=== PATIENT | male | born 1970 ===

== ENCOUNTER 2016-10-24 15:17 | Inpatient (IN) | payer OTHER ==
--- NOTE | 2016-10-24 15:39 | ED PDOC ---
HPI: General Adult Time Seen by Provider: 10/24/16 15:39 Chief Complaint (Nursing): Back Pain Chief Complaint (Provider): back pain, vomiting History Per: Patient Additional Complaint(s): 46-year-old male presents to emergency department with left-sided lower back pain and vomiting that started yesterday. Patient has history of chronic back pain but states that vomiting started yesterday and back pain became worse. Patient states he has had similar symptoms in the past and that this happens about once per year. He denies any fever or chills. No associated abdominal pain. Patient has been taking Motrin but this has not helped the pain. Patient had similar symptoms last year at this time and was diagnosed with influenza and URI. Past Medical History Reviewed: Historical Data, Nursing Documentation, Vital Signs Vital Signs: Last Vital Signs Temp 99 F 10/25/16 08:00 Pulse 85 10/25/16 08:00 Resp 20 10/25/16 08:00 BP 103/55 L 10/25/16 08:00 Pulse Ox 97 10/25/16 08:00 - Medical History PMH: Anemia - Surgical History Surgical History: Appendectomy - Family History Family History: States: No Known Family Hx - Living Arrangements Living Arrangements: With Family - Social History Current smoker - smoking cessation education provided: Yes Alcohol: Social Drugs: Denies - Home Medications Home Medications: Ambulatory Orders Medication Instructions Recorded No Known Home Med 10/24/16 - Allergies Allergies/Adverse Reactions: Allergies Allergy/AdvReac Type Severity Reaction Status Date / Time No Known Allergies Allergy Verified 10/24/16 15:28 Review of Systems ROS Statement: Except As Marked, All Systems Reviewed And Found Negative Constitutional: Negative for: Fever, Chills Cardiovascular: Negative for: Chest Pain Respiratory: Negative for: Cough Gastrointestinal: Positive for: Nausea, Vomiting. Negative for: Abdominal Pain , Diarrhea Genitourinary Male: Negative for: Dysuria, Frequency, Incontinence, Hematuria Musculoskeletal: Positive for: Back Pain Neurological: Negative for: Headache, Dizziness Physical Exam - Reviewed Nursing Documentation Reviewed: Yes Vital Signs Reviewed: Yes - Physical Exam Appears: Positive for: Well, Non-toxic, No Acute Distress Skin: Negative for: Rash Cardiovascular/Chest: Positive for: Regular Rate, Rhythm, Other Respiratory: Positive for: Normal Breath Sounds Gastrointestinal/Abdominal: Positive for: Normal Exam, Soft. Negative for: Tenderness, Distended, Guarding, Rebound Back: Positive for: L CVA Tenderness (mild on left), Vertebral Tenderness ( tenderness left paraspinal region with no swelling or ecchymosis), Other ( negative bilateral straight leg raise). Negative for: R CVA Tenderness, Muscle Spasm Extremity: Positive for: Normal ROM. Negative for: Pedal Edema Neurologic/Psych: Positive for: Alert, Oriented - Laboratory Results Result Diagrams: 10/24/16 16:15 10/24/16 16:15 - ECG Interpretation Of ECG: NSR 84 bpm, no acute finding, reviewed by PA and ED attending O2 Sat by Pulse Oximetry: 100 Pulse Ox Interpretation: Normal - Other Rad CT abd and pelvis without contrast X-Ray: Read By Radiologist X-Ray Interpretation: see below CT chest X-Ray: Interpreted by Me, Viewed By Me X-Ray Interpretation: suspect JEROME pneumonia Abd US X-Ray: Read By Radiologist X-Ray Interpretation: gallstones with no acute cholecystitis Medical Decision Making Medical Decision Makin46 year old with low back pain and vomiting Plan: CBC CMP Lipase CT abd and pelvis without contrast IVF IV zofran and morphine Urine dip CT: IMPRESSION: Gallstones. Infiltration and gas in the left buttock and subcutaneous fat, correlate for recent trauma. Patient's buttocks were examined thoroughly based on above CT finding, no open wounds, evidence of trauma or postoperative changes noted. Chest x-ray demonstrates likely left upper lobe pneumonia. Leukocytosis noted. IV Rocephin and Zithromax ordered. Case was discussed with family practice resident, Dr. Bloom, he will admit [facility]. Patient is aware of and agrees with admission. Disposition - Clinical Impression Clinical Impression: Leukocytosis, Pneumonia - Patient ED Disposition Is Patient to be Admitted: Yes - Disposition Disposition Time: 19:33 Condition: FAIR - Pt Status Changed To: Hospital Disposition Of: Observation Results - Lab Results Lab Results: 10/24/16 10/24/16 10/24/16 17:35 16:15 10:01 WBC 17.3 H RBC 4.29 L Hgb 8.5 L Hct 29.7 L MCV 69.3 L MCH 19.8 L MCHC 28.6 L RDW 22.0 H Plt Count 265 MPV 10.1 Neut % (Auto) 89.5 H Lymph % (Auto) 6.0 L [place] % (Auto) 4.5 Eos % (Auto) 0.0 Baso % (Auto) 0.0 Neut # 15.4 H Lymph # 1.0 Roosevelt # 0.8 Eos # 0.0 Baso # 0.0 Neutrophils % (Manual) 81 H Band Neutrophils % 4 H Lymphocytes % (Manual) 8 L Monocytes % (Manual) 7 Platelet Estimate Normal Hypochromasia (manual) Moderate Poikilocytosis (manual Slight Anisocytosis (manual) Moderate Microcytosis (manual) Moderate Target Cells Moderate Tear Drop Cells Slight Ovalocytes Slight pO2 25 L VBG pH 7.33 VBG pCO2 49 VBG HCO3 22.8 VBG Total CO2 27.3 VBG O2 Sat (Calc) 59.3 VBG Base Excess -0.7 L VBG Potassium 4.2 Glucose 115 H Lactate 1.7 FiO2 21.0 Sodium 143 138.0 Potassium 4.0 Chloride 106 109.0 H Carbon Dioxide 23 Anion Gap 18 BUN 16 Creatinine 0.6 L Est GFR ( Amer) > 60 Est GFR (Non-Af Amer) > 60 Random Glucose 111 H Calcium 9.2 Total Bilirubin 2.2 H AST 34 ALT 11 L Alkaline Phosphatase 79 Total Protein 8.4 H Albumin 4.3 Globulin 4.2 H Albumin/Globulin Ratio 1.0 Lipase 42 Venous Blood Potassium 4.2 Urine Color Yellow Urine Clarity Clear Urine pH 5.0 Ur Specific [place] 1.025 Urine Protein 30 Urine Glucose (UA) Neg Urine Ketones Negative Urine Blood Small Urine Nitrate Negative Urine Bilirubin Negative Urine Urobilinogen 0.2-1.0 Ur Leukocyte Esterase Neg Urine RBC (Auto) < 1 Urine Microscopic WBC 1
[2016-10-24] MEDS ORDERED: Sodium Chloride 0.9% 1,000 ML IV STA (15:49)
[2016-10-24 16:24] LABS: HEMATOCRIT 29.7 % (35.0-51.0); MEAN CELL VOLUME 69.3 fl (80.0-94.0); MEAN CORPUSCULAR HEMOGLOBIN 19.8 pg (27.0-31.0); MEAN CORPUSCULAR HGB CONC 28.6 g/dL (33.0-37.0); MEAN PLATELET VOLUME 10.1 fl (7.2-11.7); MONO # 0.8 K/uL (0.0-0.8); MONO % 4.5 % (0.0-10.0); NEUT # 15.4 K/uL (1.8-7.0); NEUT % 89.5 % (50.0-75.0); PLATELET COUNT 265 K/uL (130-400); WHITE BLOOD COUNT 17.3 K/uL (4.8-10.8)
[2016-10-24 16:49] LABS: ALKALINE PHOSPHATASE 79 U/L (38-126); ALT/SGPT 11 U/L (21-72); AST/SGOT 34 U/L (17-59); BILIRUBIN,TOTAL 2.2 mg/dl (0.2-1.3); BLOOD UREA NITROGEN 16 mg/dl (9-20); CALCIUM 9.2 mg/dL (8.4-10.2); CARBON DIOXIDE 23 mmol/L (22-30); CHLORIDE 106 mmol/L (98-107); GFR AFRICAN-AMERICAN > 60; GLUCOSE,RANDOM 111 mg/dL (75-110); LIPASE 42 U/L (23-300); SODIUM 143 mmol/l (132-148); TOTAL PROTEIN 8.4 G/DL (6.3-8.2)
--- NOTE | 2016-10-24 17:30 | CT ---
PROCEDURE: CT Abdomen and Pelvis without intravenous contrast HISTORY: right flank pain, hematuria COMPARISON: None. TECHNIQUE: Technique. Contrast Dose: Radiation dose: Total exam DLP = 427 mGy-cm. This CT exam was performed using one or more of the following dose reduction techniques: Automated exposure control, adjustment of the mA and/or kV according to patient size, and/or use of iterative reconstruction technique. FINDINGS: LOWER THORAX: Unremarkable. LIVER: Unremarkable. No gross lesion or ductal dilatation. GALLBLADDER AND BILE DUCTS: Gallstones. PANCREAS: Unremarkable. No gross lesion or ductal dilatation. SPLEEN: Unremarkable. ADRENALS: Unremarkable. No mass. KIDNEYS AND URETERS: Unremarkable. No hydronephrosis. No solid mass. VASCULATURE: Unremarkable. No aortic aneurysm. BOWEL: Unremarkable. No obstruction. No gross mural thickening. APPENDIX: Unremarkable. Normal appendix. PERITONEUM: Unremarkable. No free fluid. No free air. LYMPH NODES: Unremarkable. No enlarged lymph nodes. BLADDER: Unremarkable. REPRODUCTIVE: Unremarkable. BONES: No acute fracture. OTHER FINDINGS: There is infiltration and gas in the left buttock and subcutaneous fat.. IMPRESSION: Gallstones. Infiltration and gas in the left buttock and subcutaneous fat, correlate for recent trauma..
[2016-10-24 17:54] LABS: RBC URINE < 1 /hpf (0-3); URINE BILIRUBIN NEGATIVE (NEGATIVE); URINE BLOOD SMALL (NEGATIVE); URINE COLOR YELLOW (YELLOW); URINE GLUCOSE (UA) NEG (Normal); URINE KETONE NEGATIVE (NEGATIVE); URINE LEUKOCYTE ESTERASE NEG Leu/uL (Negative); URINE PROTEIN 30 mg/dL (NEGATIVE); URINE UROBILINOGEN 0.2-1.0 mg/dL (0.2-1.0); WBC URINE 1 /hpf (0-5)
[2016-10-24 18:08] LABS: VENOUS BLOOD GAS BASE EXCESS -0.7 mmol/L (0.0-2.0); VENOUS BLOOD GAS PCO2 49 mmHg (40-60); VENOUS BLOOD PH 7.33 (7.32-7.43)
[2016-10-24] MEDS ORDERED: Azithromycin 500 MG in Sodium Chloride 0.9% 250 ML IVPB STA (19:20)
[2016-10-24] MEDS ORDERED: PED IVPB STA (19:20)
[2016-10-24] MEDS ORDERED: CEFTRIAXONE IVPB STA (19:20)
[2016-10-24] MEDS ORDERED: cefTRIAXone (Rocephin) 1 gm Inj ONE (19:49)
--- NOTE | 2016-10-24 20:04 | CP.PCM.HP ---
History of Present Illness - History of Present Illness History of Present Illness: 46 yo M w PMHx of chronic anemia w alpha thalassemia is admitted for nausea, vomiting, productive cough, and cough-associated mid back pain for previous 2-3 days. Pt confirms that his back pain does develop following the periods of coughing. He also states subjective fevers at home and added that he had a similar presentation in September. When asked about the patient's coughing habits, both mother and partner at bedside stated he coughs 3-4 months of the year with intermittent sputum production. Pt denies any previous pulmonary diagnosis or workup. He states that he has smoked cigarettes regularly since the age of [age], 20+ yrs at a rate of 1PPD, but insists that he's been cutting back lately. Otherwise, he denies diarrhea/constipation, chest pain, abd pain, hematuria, dysuria, or myalgias. PMD: [facility] eCW reviewed PMHx: Alpha Thalassemia (eCW note 10/07/15 and [facility] Result 09/30/14 ) PSHx: Appendectomy 10+ yrs ago NKDA Home Meds: None FHx: None SHx: Smoking since age 9 w 20+ yrs @ 1PPD, social etoh not weekly, denies illicit drugs; this history is confirmed by the family members present ED Course: -CBC -CMP -Lipase -VBG -BCx -UCx -UA -CXR -EKG -CT A/P -U/S Abd -Morphine 2mg IVP STAT x1 -NS 1L -Ceftriaxone 1gm IVP x1 -Azithromycin 500mg IVP x1 -Zofran 4mg IVP STAT x2 Present on Admission - Present on Admission Any Indicators Present on Admission: No History of DVT/PE: No History of Uncontrolled Diabetes: No Urinary Catheter: No Decubitus Ulcer Present: No Review of Systems - Review of Systems Review of Systems: see HPI Past Patient History - Past Social History Alcohol: Social Drugs: Denies - CARDIAC Hx Cardiac Disorders: No - PULMONARY Hx Respiratory Disorders: No - ENDOCRINE/METABOLIC Hx Endocrine Disorders: No - HEMATOLOGICAL/ONCOLOGICAL Hx Anemia: Yes - PSYCHIATRIC Hx Substance Use: No - SURGICAL HISTORY Hx Appendectomy: Yes - ANESTHESIA Hx Anesthesia: Yes Hx Anesthesia Reactions: No Meds Allergies/Adverse Reactions: Allergies Allergy/AdvReac Type Severity Reaction Status Date / Time No Known Allergies Allergy Verified 10/24/16 15:28 Physical Exam - Constitutional Appears: No Acute Distress, Older Than Stated Age - Head Exam Head Exam: ATRAUMATIC, NORMAL INSPECTION - Eye Exam Eye Exam: EOMI Pupil Exam: PERRL - ENT Exam ENT Exam: Mucous Membranes Dry - Neck Exam Neck exam: Positive for: Full Rom. Negative for: Tenderness - Respiratory Exam Respiratory Exam: Rhonchi (mildly throughout), Wheezes (minimal lower lobes), NORMAL BREATHING PATTERN. absent: Respiratory Distress - Cardiovascular Exam Cardiovascular Exam: REGULAR RHYTHM - GI/Abdominal Exam GI & Abdominal Exam: Normal Bowel Sounds, Soft. absent: Tenderness - Back Exam Back exam: NORMAL INSPECTION, tenderness - Neurological Exam Neurological exam: Alert, CN II-XII Intact, Oriented x3 - Psychiatric Exam Psychiatric exam: Normal Affect, Normal Mood - Skin Additional comments: Dry, Intact, Warm, but mild jaundice; buttocks showed no wounds, ecchymosis, drainage, or abnormal pathology Results - Vital Signs Recent Vital Signs: Last Vital Signs Temp 99.3 F 10/24/16 15:28 Pulse 97 H 10/24/16 15:28 Resp 18 10/24/16 15:28 BP 104/58 L 10/24/16 15:28 Pulse Ox 100 10/24/16 19:37 - Labs Result Diagrams: 10/24/16 16:15 10/24/16 16:15 Assessment & Plan - Assessment and Plan (Free Text) Plan: 46 yo M w PMHx of chronic anemia from alpha thalassemia is admitted for nausea, vomiting, productive cough, and cough-associated mid back pain for previous 2-3 days 1) Productive cough w cough-associated back pain -Chronic Bronchitis VS Pneumonia VS other etiology -Afebrile, NSR 90s, Resp Rate wnl -CXR shows well-inflated lungs w/o clear infiltrate, d/w overnight hospitalist -CURB 65 score of 0 -Duoneb 3ml INH STAT -Duoneb 3ml INH RQID -Albuterol 0.083% INH RQ6 PRN -Robitussin DM 10 mL PO Q6H PRN -Tylenol 650mg PO Q6H PRN mild pain -Toradol 30mg IVP ONCE PRN moderate pain; loading dose --Ibuprofen d/c'ed, never given -Toradol 15mg IVP Q6H PRN moderate pain --Conveyed the following to RNs: one time dose of 30 with follow up 15s -Morphine 2mg IVP Q6H PRN severe pain -Ceftriaxone 2g IVP Daily -Azithromycin 500mg IVP Daily -f/u Respiratory Exam following Duoneb -f/u Respiratory Status -f/u Procalcitonin, HIV -Will consider removing antibiotics if Pneumonia ruled out -Will consider CT Chest for further pulmonary workup 2) r/o Bile Duct Stone -Few day h/o nausea/vomiting, skin slightly jaundiced, noted h/o alpha thalassemia -CT A/P: Gallstones. Hepatomegaly. Infiltration and gas in the left buttock and subcutaneous fat, correlate for recent trauma. -U/S Abd: Gallstones. No sonographic evidence of acute cholecystitis. Hepatomegaly, measuring 20cm in length. Otherwise within normal limits in appearance. Normal flow seen in the main portal vein on color and Doppler imaging. -NPO for potential morning procedure -GI aware and onboard -D5 1/2NS @ 126ml/hr for hydration + NPO -Protonix 40mg IVP STAT, before NSAIDs given -Protonix 40mg IVP Daily, during at least NPO period -Zofran 4mg IVP Q6H PRN -f/u MRCP, as per GI -f/u GI recommendations -f/u NPO status, pertaining to the need to remain for procedures -f/u Hep Panel 3) Anemia, Chronic -Currently 8.5/29.7 -h/o Alpha Thalassemia -Noted history in eCW indicating H/H has fallen as low as 7.5/27.2 -f/u H/H 4) Trauma of Buttocks -CT A/P: Infiltration and gas in the left buttock and subcutaneous fat, correlate for recent trauma. -f/u s/s 5) Smoking Cessation -Pt agreed to use Nicotine Patch in patient in hopes of breaking his long-time smoking habit 6) DVT Prophylaxis -SCDs -Will re evaluate for further treatment if hospital stay is extended
--- NOTE | 2016-10-24 20:32 | US ---
EXAM: US Abdomen Limited, Right Upper Quadrant CLINICAL HISTORY: 46 years old, male; Pain; Abdominal pain; Epigastric; Additional info: Gallstones, vomiting TECHNIQUE: Real-time ultrasound of the right upper quadrant with image documentation. EXAM DATE/TIME: 10/24/2016 5:40 PM COMPARISON: No relevant prior studies available. FINDINGS: Gallbladder: Contains multiple small, shadowing gallstones. These were reportedly nonmobile on real time. No significant gallbladder wall thickening noted. No evidence of pericholecystic fluid. Reportedly negative sonographic Wolff's sign. Common bile duct: Does not appear abnormally dilated, measuring less than 6 mm in diameter. Liver: Enlarged, measuring 20 cm in length. Otherwise within normal limits in appearance. Normal flow seen in the main portal vein on color and Doppler imaging. Pancreas: Imaged portions appear unremarkable. Right kidney: Within normal limits in appearance. Measures 10.3 cm in length. No evidence of hydronephrosis. IMPRESSION: Gallstones. No sonographic evidence of acute cholecystitis. Hepatomegaly. See above for remaining findings.
[2016-10-24 21:07] LABS: NEUTROPHIL 81 % (42-75); TOTAL CELLS COUNTED 100
[2016-10-24] MEDS ORDERED: Albuterol 0.083% Inhal Sol (2.5 mg/3 mL) UD INH PRN (22:36)
[2016-10-24] MEDS ORDERED: Albuterol-Ipratrop 3 mg / 0.5 (3 ml) UD INH STA (22:36)
[2016-10-24] MEDS: Dextrose 5%/0.45% NS 1,000 ML IV SCH (23:04)
[2016-10-24] MEDS: guaiFENesin DM 200 mg-20 mg/10 ml UD PO PRN (23:08)
[2016-10-25] MEDS ORDERED: Dextrose 5%/0.45% NS 1,000 ML IV SCH (05:30)
[2016-10-25] MEDS: Dextrose 5%/0.45% NS 1,000 ML IV SCH (07:05)
[2016-10-25] MEDS: Albuterol-Ipratrop 3 mg / 0.5 (3 ml) UD INH SCH ×2 (07:29→11:31)
[2016-10-25] MEDS ORDERED: Azithromycin 500 MG in Sodium Chloride 0.9% 250 ML IVPB SCH (09:00)
[2016-10-25] MEDS ORDERED: Pneumococcal 23-Valent Vaccine IM ONE (09:00)
--- NOTE | 2016-10-25 10:29 | RAD ---
HISTORY: upper back pain COMPARISON: 09/29/2015 TECHNIQUE: Chest PA and lateral FINDINGS: LUNGS: Slight improvement in left perihilar infiltrate PLEURA: No significant pleural effusion identified. No pneumothorax apparent. CARDIOVASCULAR: Normal. OSSEOUS STRUCTURES: No significant abnormalities. VISUALIZED UPPER ABDOMEN: Normal. OTHER FINDINGS: None. IMPRESSION: Slight improvement in left perihilar infiltrate
[2016-10-25] MEDS: cefTRIAXone 2 GM in Sodium Chloride 0.9% 100 ML IVPB SCH (11:23)
--- NOTE | 2016-10-25 12:25 | CARD ---
APPROVED REPORT EKG Measurement Heart [id number] <Conclusion> Normal sinus rhythm Normal ECG
--- NOTE | 2016-10-25 13:26 | CP.PCM.PN ---
Subjective - Date & Time of Evaluation Date of Evaluation: 10/25/16 Time of Evaluation: 07:35 - Subjective Subjective: The patient is a 46 y/o man w/ PMHx of chronic anemia w/ alpha thalassemia is admitted for nausea, vomiting, productive cough, and cough-associated mid back pain for previous 2-3 days. The patient was seen this morning. There are no acute events overnight. The patient is not in acute distress. The patient reports improvement of breathing but complains of left back/shoulder pain at the scapula. The patient denies headache, dizziness, chest pain, diarrhea, constipation, abdominal pain, hematuria, dysuria, or myalgias. Objective - Vital Signs/Intake and Output Vital Signs (last 24 hours): Temp Pulse Resp BP Pulse Ox 98.9 F 100 H 20 105/59 L 97 10/25/16 12:34 10/25/16 12:34 10/25/16 12:34 10/25/16 12:34 10/25/16 12:34 - Medications Medications: Current Medications Acetaminophen (Tylenol 325mg Tab) 650 mg PO Q6 PRN PRN Reason: Fever >100.4 F Acetaminophen (Tylenol 325mg Tab) 650 mg PO Q6 PRN PRN Reason: Pain, Mild (1-3) Albuterol Sulfate (Albuterol 0.083% Inhal Kristie (2.5 Mg/3 Ml) Ud) 2.5 mg INH RQ6 PRN PRN Reason: Shortness of Breath Albuterol/Ipratropium (Duoneb 3 Mg/0.5 Mg (3 Ml) Ud) 3 ml INH RQID [facility] Last Admin: 10/25/16 11:31 Dose: 3 ml Guaifenesin/Dextromethorphan (Robitussin Dm) 10 ml PO Q6 PRN PRN Reason: Cough Last Admin: 10/24/16 23:08 Dose: 10 ml Azithromycin 500 mg/ Sodium (Chloride) 250 mls @ 250 mls/hr IVPB DAILY [facility] Last Admin: 10/25/16 11:23 Dose: 250 mls/hr Ceftriaxone Sodium 2 gm/ (Sodium Chloride) 100 mls @ 100 mls/hr IVPB DAILY [facility] Last Admin: 10/25/16 11:23 Dose: 100 mls/hr Dextrose/Sodium Chloride (Dextrose 5%/0.45% Ns 1000 Ml) 1,000 mls @ 126 mls/hr IV .[id number] [facility] Stop: 10/25/16 13:37 Last Admin: 10/25/16 07:05 Dose: 126 mls/hr Ketorolac Tromethamine (Toradol) 15 mg IVP Q6 PRN PRN Reason: Pain, moderate (4-7) Last Admin: 10/25/16 06:37 Dose: 15 mg Morphine Sulfate (Morphine) 2 mg IVP Q6 PRN PRN Reason: Pain, severe (8-10) Nicotine (Nicoderm Cq) 1 patch TD DAILY [facility] Last Admin: 10/24/16 23:10 Dose: 1 patch Ondansetron HCl (Zofran Inj) 4 mg IVP Q6 PRN PRN Reason: Nausea/Vomiting Pantoprazole Sodium (Protonix Inj) 40 mg IVP DAILY [facility] Last Admin: 10/25/16 11:18 Dose: 40 mg - Constitutional Appears: No Acute Distress - Head Exam Head Exam: ATRAUMATIC, NORMOCEPHALIC - Eye Exam Eye Exam: EOMI Pupil Exam: PERRL - ENT Exam ENT Exam: Mucous Membranes Dry - Respiratory Exam Respiratory Exam: Clear to Ausculation Bilateral. absent: Accessory Muscle Use , Chest Wall Tenderness, Decreased Breath Sounds, Prolonged Expiratory Phase, Rales, Rhonchi, Wheezes, Respiratory Distress, Stridor - Cardiovascular Exam Cardiovascular Exam: REGULAR RHYTHM. absent: Tachycardia - GI/Abdominal Exam GI & Abdominal Exam: Soft, Normal Bowel Sounds. absent: Distended, Tenderness - Extremities Exam Extremities Exam: absent: Calf Tenderness, Pedal Edema, Tenderness - Neurological Exam Neurological Exam: Alert, Awake, Oriented x3 - Skin Skin Exam: Dry, Intact, Pallor, Warm Additional comments: left buttock atraumatic, no bruising, no injury Assessment and Plan - Assessment and Plan (Free Text) Assessment: The patient is a 46 y/o man w/ PMHx of chronic anemia w/ alpha thalassemia is admitted for nausea, vomiting, productive cough, and cough-associated mid back pain for previous 2-3 days prior to admission. Plan: 1) Productive cough w cough-associated back pain - Chronic Bronchitis VS Pneumonia VS other etiology - CXR shows well-inflated lungs w/o clear infiltrate, d/w overnight hospitalist - CURB 65 score of 0 - Duoneb 3ml INH STAT - Duoneb 3ml INH RQID - Albuterol 0.083% INH RQ6 PRN - Robitussin DM 10 mL PO Q6H PRN - Tylenol 650mg PO Q6H PRN mild pain - Toradol 30mg IVP ONCE PRN moderate pain; loading dose -- Ibuprofen d/c'ed, never given - Toradol 15mg IVP Q6H PRN moderate pain - Morphine 2mg IVP Q6H PRN severe pain - Ceftriaxone 2g IVP Daily - Azithromycin 500mg IVP Daily - f/u Respiratory Exam following Duoneb - f/u Respiratory Status - f/u Procalcitonin, HIV 2) r/o Bile Duct Stone - Few day h/o nausea/vomiting, skin slightly jaundiced, noted h/o alpha thalassemia - CT A/P: Gallstones. Hepatomegaly. Infiltration and gas in the left buttock and subcutaneous fat, correlate for recent trauma. - U/S Abd: Gallstones. No sonographic evidence of acute cholecystitis. Hepatomegaly, measuring 20cm in length. Otherwise within normal limits in appearance. Normal flow seen in the main portal vein on color and Doppler imaging. - GI aware, onboard, signed off - D5 1/2NS @ 126ml/hr for hydration + NPO - Protonix 40mg IVP STAT, before NSAIDs given - Protonix 40mg IVP Daily, during at least NPO period - Zofran 4mg IVP Q6H PRN - MRCP cancelled , as per GI - f/u GI recommendations - f/u NPO status, pertaining to the need to remain for procedures - f/u Hep Panel 3) Anemia, Chronic - Currently 8.5/29.7 - h/o Alpha Thalassemia - Noted history in eCW indicating H/H has fallen as low as 7.5/27.2 - f/u H/H 4) Trauma of Buttocks - CT A/P: Infiltration and gas in the left buttock and subcutaneous fat, correlate for recent trauma. - patient reports slf injection at left buttock with "B vitamins" 5) Smoking Cessation - Pt agreed to use Nicotine Patch in patient in hopes of breaking his long-time smoking habit 6) DVT Prophylaxis - SCDs
--- NOTE | 2016-10-25 19:44 | CP.PCM.CON ---
History of Present Illness - History of Present Illness History of Present Illness: Gi consulted by hospitalist- This is a 46 y/o man w/ PMHx of chronic anemia w/ alpha thalassemia is admitted for nausea, vomiting, productive cough, and mid back pain for previous 2-3 days radiating to the back. GI consulted for anemia and back pain concerning for pancreatitis in setting of gallstones. CT shows gallstones without bile duct dilatation. Patient states his anemia is chronic due to alpha thalassemia. Today he denies rectal bleeding, melena, dark stools, hematemesis Review of Systems - Constitutional Additional comments: 12 point ROS unremarkable except that documented in HPI Past Patient History - Past Medical History & Family History Past Medical History?: Yes - Past Social History Alcohol: Social Drugs: Denies - CARDIAC Hx Cardiac Disorders: No - PULMONARY Hx Respiratory Disorders: No - ENDOCRINE/METABOLIC Hx Endocrine Disorders: No - HEMATOLOGICAL/ONCOLOGICAL Hx Anemia: Yes - MUSCULOSKELETAL/RHEUMATOLOGICAL Hx Falls: No - PSYCHIATRIC Hx Substance Use: No - SURGICAL HISTORY Hx Appendectomy: Yes - ANESTHESIA Hx Anesthesia: Yes Hx Anesthesia Reactions: No Meds Allergies/Adverse Reactions: Allergies Allergy/AdvReac Type Severity Reaction Status Date / Time No Known Allergies Allergy Verified 10/24/16 15:28 - Medications Medications: Current Medications Acetaminophen (Tylenol 325mg Tab) 650 mg PO Q6 PRN PRN Reason: Fever >100.4 F Acetaminophen (Tylenol 325mg Tab) 650 mg PO Q6 PRN PRN Reason: Pain, Mild (1-3) Last Admin: 10/25/16 16:02 Dose: 650 mg Albuterol Sulfate (Albuterol 0.083% Inhal Kristie (2.5 Mg/3 Ml) Ud) 2.5 mg INH RQ6 PRN PRN Reason: Shortness of Breath Albuterol/Ipratropium (Duoneb 3 Mg/0.5 Mg (3 Ml) Ud) 3 ml INH RQID [facility] Last Admin: 10/25/16 11:31 Dose: 3 ml Guaifenesin/Dextromethorphan (Robitussin Dm) 10 ml PO Q6 PRN PRN Reason: Cough Last Admin: 10/24/16 23:08 Dose: 10 ml Azithromycin 500 mg/ Sodium (Chloride) 250 mls @ 250 mls/hr IVPB DAILY [facility] Last Admin: 10/25/16 11:23 Dose: 250 mls/hr Ceftriaxone Sodium 2 gm/ (Sodium Chloride) 100 mls @ 100 mls/hr IVPB DAILY [facility] Last Admin: 10/25/16 11:23 Dose: 100 mls/hr Ketorolac Tromethamine (Toradol) 15 mg IVP Q6 PRN PRN Reason: Pain, moderate (4-7) Last Admin: 10/25/16 17:32 Dose: 15 mg Morphine Sulfate (Morphine) 2 mg IVP Q6 PRN PRN Reason: Pain, severe (8-10) Nicotine (Nicoderm Cq) 1 patch TD DAILY [facility] Last Admin: 10/24/16 23:10 Dose: 1 patch Ondansetron HCl (Zofran Inj) 4 mg IVP Q6 PRN PRN Reason: Nausea/Vomiting Pantoprazole Sodium (Protonix Inj) 40 mg IVP DAILY [facility] Last Admin: 10/25/16 11:18 Dose: 40 mg Physical Exam - Constitutional Appears: Well, Non-toxic, No Acute Distress - Head Exam Head Exam: ATRAUMATIC, NORMAL INSPECTION, NORMOCEPHALIC - Eye Exam Eye Exam: EOMI, Normal appearance, PERRL Pupil Exam: NORMAL ACCOMODATION, PERRL - Respiratory Exam Respiratory Exam: Clear to Auscultation Bilateral, NORMAL BREATHING PATTERN - Cardiovascular Exam Cardiovascular Exam: REGULAR RHYTHM - GI/Abdominal Exam GI & Abdominal Exam: Normal Bowel Sounds, Soft. absent: Tenderness - Extremities Exam Extremities exam: Positive for: full ROM, normal inspection, pedal pulses present - Back Exam Back exam: FULL ROM - Neurological Exam Neurological exam: Alert, CN II-XII Intact, Normal Gait, Oriented x3, Reflexes Normal - Psychiatric Exam Psychiatric exam: Normal Affect, Normal Mood - Skin Skin Exam: Dry, Intact, Pallor Results - Vital Signs Recent Vital Signs: Last Vital Signs Temp 99.4 F 10/25/16 15:38 Pulse 92 H 10/25/16 15:38 Resp 20 10/25/16 15:38 BP 109/65 10/25/16 15:38 Pulse Ox 98 10/25/16 15:38 - Labs Result Diagrams: 10/24/16 16:15 10/24/16 16:15 Assessment & Plan - Assessment and Plan (Free Text) Assessment: 46 yr old M admitted with anemia with past history of alpha thalassemia and no history of GI bleed. Complains of back pain which is mostly spinal and muscular. No s/s of pancreatitis or choledocholithiasis. Will sign off now. No Gi complains. Thank you for letting us participate in the care of this patient
[2016-10-26 07:03] LABS: HEMATOCRIT 21.4 % (35.0-51.0); MEAN CELL VOLUME 66.7 fl (80.0-94.0); MEAN CORPUSCULAR HEMOGLOBIN 20.4 pg (27.0-31.0); MEAN CORPUSCULAR HGB CONC 30.7 g/dL (33.0-37.0); RED CELL DISTRIBUTION WIDTH 20.2 % (11.5-14.5); WHITE BLOOD COUNT 8.5 K/uL (4.8-10.8)
[2016-10-26 07:05] LABS: BLOOD UREA NITROGEN 6 mg/dl (9-20); CALCIUM 8.6 mg/dL (8.4-10.2); CARBON DIOXIDE 26 mmol/L (22-30); CHLORIDE 106 mmol/L (98-107); GFR AFRICAN-AMERICAN > 60; GLUCOSE,RANDOM 101 mg/dL (75-110); POTASSIUM 3.7 MMOL/L (3.6-5.0); SODIUM 144 mmol/l (132-148)
[2016-10-26] MEDS: Albuterol-Ipratrop 3 mg / 0.5 (3 ml) UD INH SCH ×4 (07:28→19:28)
[2016-10-26] MEDS: cefTRIAXone 2 GM in Sodium Chloride 0.9% 100 ML IVPB SCH (08:35)
[2016-10-26] MEDS: Azithromycin 500 MG in Sodium Chloride 0.9% 250 ML IVPB SCH (09:20)
[2016-10-26 10:35] LABS: HEMATOCRIT 23.1 % (35.0-51.0); RETIC% 4.7 % (0.5-1.5)
[2016-10-26 10:42] LABS: BILIRUBIN,TOTAL 1.4 mg/dl (0.2-1.3)
[2016-10-26 10:44] LABS: PARTIAL THROMBOPLASTIN TIME 34.9 SECONDS (23.3-32.5)
--- NOTE | 2016-10-26 14:12 | CP.PCM.PN ---
Subjective - Date & Time of Evaluation Date of Evaluation: 10/26/16 Time of Evaluation: 07:00 - Subjective Subjective: The patient is a 46 y/o man w/ PMHx of chronic anemia w/ alpha thalassemia is admitted for nausea, vomiting, productive cough, and cough-associated mid back pain for previous 2-3 days. The patient was seen this morning. There are no acute events overnight. The patient is not in acute distress. The patient reports improvement of breathing but complains of left back/shoulder pain at the scapula. The patient reports that he feels weak. The patient denies headache, dizziness, chest pain, diarrhea, constipation, abdominal pain, hematuria, dysuria, or myalgias. Objective - Vital Signs/Intake and Output Vital Signs (last 24 hours): Temp Pulse Resp BP Pulse Ox 98.1 F 110 H 18 102/66 96 10/26/16 07:30 10/26/16 07:30 10/26/16 07:30 10/26/16 07:30 10/26/16 07:30 - Medications Medications: Current Medications Acetaminophen (Tylenol 325mg Tab) 650 mg PO Q6 PRN PRN Reason: Fever >100.4 F Acetaminophen (Tylenol 325mg Tab) 650 mg PO Q6 PRN PRN Reason: Pain, Mild (1-3) Last Admin: 10/25/16 16:02 Dose: 650 mg Albuterol Sulfate (Albuterol 0.083% Inhal Kristie (2.5 Mg/3 Ml) Ud) 2.5 mg INH RQ6 PRN PRN Reason: Shortness of Breath Albuterol/Ipratropium (Duoneb 3 Mg/0.5 Mg (3 Ml) Ud) 3 ml INH RQID [facility] Last Admin: 10/26/16 11:12 Dose: 3 ml Guaifenesin/Dextromethorphan (Robitussin Dm) 10 ml PO Q6 PRN PRN Reason: Cough Last Admin: 10/24/16 23:08 Dose: 10 ml Ceftriaxone Sodium 2 gm/ (Sodium Chloride) 100 mls @ 100 mls/hr IVPB DAILY [facility] Last Admin: 10/26/16 08:35 Dose: 100 mls/hr Azithromycin 500 mg/ Sodium (Chloride) 250 mls @ 250 mls/hr IVPB DAILY@1000 [facility] Last Admin: 10/26/16 09:20 Dose: 250 mls/hr Ketorolac Tromethamine (Toradol) 15 mg IVP Q6 PRN PRN Reason: Pain, moderate (4-7) Last Admin: 10/25/16 17:32 Dose: 15 mg Morphine Sulfate (Morphine) 2 mg IVP Q6 PRN PRN Reason: Pain, severe (8-10) Last Admin: 10/25/16 21:43 Dose: 2 mg Nicotine (Nicoderm Cq) 1 patch TD DAILY [facility] Last Admin: 10/26/16 09:18 Dose: 1 patch Ondansetron HCl (Zofran Inj) 4 mg IVP Q6 PRN PRN Reason: Nausea/Vomiting Pantoprazole Sodium (Protonix Inj) 40 mg IVP DAILY [facility] Last Admin: 10/26/16 08:35 Dose: 40 mg - Labs Labs: 10/26/16 10:15 10/26/16 06:43 PT 11.7 SECONDS (9.6-11.2) H 10/26/16 10:15 INR 1.13 (0.92-1.08) H 10/26/16 10:15 APTT 34.9 SECONDS (23.3-32.5) H 10/26/16 10:15 - Constitutional Appears: No Acute Distress - Head Exam Head Exam: ATRAUMATIC, NORMOCEPHALIC - Eye Exam Eye Exam: EOMI Pupil Exam: PERRL - ENT Exam ENT Exam: Mucous Membranes Dry - Respiratory Exam Respiratory Exam: Clear to Ausculation Bilateral. absent: Accessory Muscle Use , Chest Wall Tenderness, Decreased Breath Sounds, Prolonged Expiratory Phase, Rales, Rhonchi, Wheezes, Respiratory Distress, Stridor - Cardiovascular Exam Cardiovascular Exam: REGULAR RHYTHM. absent: Tachycardia - GI/Abdominal Exam GI & Abdominal Exam: Soft, Normal Bowel Sounds. absent: Distended, Tenderness - Extremities Exam Extremities Exam: absent: Calf Tenderness, Tenderness - Neurological Exam Neurological Exam: Alert, Awake, Oriented x3 - Skin Skin Exam: Dry, Intact, Pallor, Warm Assessment and Plan - Assessment and Plan (Free Text) Assessment: The patient is a 46 y/o man w/ PMHx of chronic anemia w/ alpha thalassemia is admitted for nausea, vomiting, productive cough, and cough-associated mid back pain for previous 2-3 days prior to admission. Plan: 1) Productive cough w cough-associated back pain - Chronic Bronchitis VS Pneumonia VS other etiology - CXR shows well-inflated lungs w/o clear infiltrate, d/w overnight hospitalist - CURB 65 score of 0 - Duoneb 3ml INH STAT - Duoneb 3ml INH RQID - Albuterol 0.083% INH RQ6 PRN - Robitussin DM 10 mL PO Q6H PRN - Tylenol 650mg PO Q6H PRN mild pain - Toradol 30mg IVP ONCE PRN moderate pain; loading dose -- Ibuprofen d/c'ed, never given - Toradol 15mg IVP Q6H PRN moderate pain - Morphine 2mg IVP Q6H PRN severe pain - Ceftriaxone 2g IVP Daily - Azithromycin 500mg IVP Daily - f/u Respiratory Exam following Duoneb - f/u Respiratory Status - Procalcitonin: 0.19 - HIV: negative - Hep C antibody: reactive 2) r/o Bile Duct Stone - Few day h/o nausea/vomiting, skin slightly jaundiced, noted h/o alpha thalassemia - CT A/P: Gallstones. Hepatomegaly. Infiltration and gas in the left buttock and subcutaneous fat, correlate for recent trauma. - U/S Abd: Gallstones. No sonographic evidence of acute cholecystitis. Hepatomegaly, measuring 20cm in length. Otherwise within normal limits in appearance. Normal flow seen in the main portal vein on color and Doppler imaging. - GI aware, onboard, signed off - Protonix 40mg IVP STAT, before NSAIDs given - Protonix 40mg IVP Daily, during at least NPO period - Zofran 4mg IVP Q6H PRN - MRCP cancelled, as per GI - GI consulted, Dr. Sales; recommendations appreciated - Hep C antibody: reactive 3) Anemia, Chronic - Currently 6.8/23.1 - h/o Alpha Thalassemia - Noted history in eCW indicating H/H has fallen as low as 7.5/27.2 - ABORh: O+, antibody negative - Heme/Onc consulted, Dr. Marte - Follow up folate, vitamin B12, ferritin - Type and crossmatch once afebrile 4) Trauma of Buttocks - CT A/P: Infiltration and gas in the left buttock and subcutaneous fat, correlate for recent trauma. - patient reports self injection at left buttock with "B vitamins", refuses to disclose who prescribes to him 5) Smoking Cessation - Pt agreed to use Nicotine Patch in patient in hopes of breaking his long-time smoking habit 6) DVT Prophylaxis - SCDs
[2016-10-26] MEDS: guaiFENesin DM 200 mg-20 mg/10 ml UD PO PRN (17:12)
--- NOTE | 2016-10-26 18:07 | CP.PCM.CON ---
History of Present Illness - History of Present Illness History of Present Illness: 46 year old male with a history of alpha thalassemia (hgb H disease) admitted with N/V, flank pain, and anemia. He denies abnormal bleeding and bruising. 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 Review of his blood work shows a hgb electropheresis in 2014 consistent with alpha thalassemia. Past medical history: Alpha thalassemia Past surgical history: Appendectomy Family history: Denies hematologic and oncologic problems Social history: 1ppd x 35 year, social alcohol, denies illicit drug use. Allergies: NKA Review of systems: All remaining review of systems including HEENT, cardiovascular, respiratory, gastrointestinal, genitourinary, musculoskeletal, dermatologic, neurologic, and psychaitric are negative unless mentioned in the HPI. Past Patient History - Past Medical History & Family History Past Medical History?: Yes - Past Social History Alcohol: Social Drugs: Denies - CARDIAC Hx Cardiac Disorders: No - PULMONARY Hx Respiratory Disorders: No - ENDOCRINE/METABOLIC Hx Endocrine Disorders: No - HEMATOLOGICAL/ONCOLOGICAL Hx Anemia: Yes - MUSCULOSKELETAL/RHEUMATOLOGICAL Hx Falls: No - PSYCHIATRIC Hx Substance Use: No - SURGICAL HISTORY Hx Appendectomy: Yes - ANESTHESIA Hx Anesthesia: Yes Hx Anesthesia Reactions: No Meds Allergies/Adverse Reactions: Allergies Allergy/AdvReac Type Severity Reaction Status Date / Time No Known Allergies Allergy Verified 10/24/16 15:28 - Medications Medications: Current Medications Acetaminophen (Tylenol 325mg Tab) 650 mg PO Q6 PRN PRN Reason: Fever >100.4 F Last Admin: 10/26/16 15:41 Dose: 650 mg Acetaminophen (Tylenol 325mg Tab) 650 mg PO Q6 PRN PRN Reason: Pain, Mild (1-3) Last Admin: 10/25/16 16:02 Dose: 650 mg Albuterol Sulfate (Albuterol 0.083% Inhal Kristie (2.5 Mg/3 Ml) Ud) 2.5 mg INH RQ6 PRN PRN Reason: Shortness of Breath Albuterol/Ipratropium (Duoneb 3 Mg/0.5 Mg (3 Ml) Ud) 3 ml INH RQID [facility] Last Admin: 10/26/16 15:25 Dose: 3 ml Folic Acid (Folic Acid) 1 mg PO DAILY [facility] Last Admin: 10/26/16 17:15 Dose: 1 mg Guaifenesin/Dextromethorphan (Robitussin Dm) 10 ml PO Q6 PRN PRN Reason: Cough Last Admin: 10/26/16 17:12 Dose: 10 ml Ceftriaxone Sodium 2 gm/ (Sodium Chloride) 100 mls @ 100 mls/hr IVPB DAILY [facility] Last Admin: 10/26/16 08:35 Dose: 100 mls/hr Azithromycin 500 mg/ Sodium (Chloride) 250 mls @ 250 mls/hr IVPB DAILY@1000 [facility] Last Admin: 10/26/16 09:20 Dose: 250 mls/hr Ketorolac Tromethamine (Toradol) 15 mg IVP Q6 PRN PRN Reason: Pain, moderate (4-7) Last Admin: 10/25/16 17:32 Dose: 15 mg Morphine Sulfate (Morphine) 2 mg IVP Q6 PRN PRN Reason: Pain, severe (8-10) Last Admin: 10/25/16 21:43 Dose: 2 mg Nicotine (Nicoderm Cq) 1 patch TD DAILY [facility] Last Admin: 10/26/16 09:18 Dose: 1 patch Ondansetron HCl (Zofran Inj) 4 mg IVP Q6 PRN PRN Reason: Nausea/Vomiting Last Admin: 10/26/16 14:03 Dose: 4 mg Pantoprazole Sodium (Protonix Inj) 40 mg IVP DAILY [facility] Last Admin: 10/26/16 08:35 Dose: 40 mg Physical Exam - Head Exam Head Exam: ATRAUMATIC - Eye Exam Eye Exam: Normal appearance - ENT Exam ENT Exam: Mucous Membranes Dry - Respiratory Exam Respiratory Exam: NORMAL BREATHING PATTERN - Cardiovascular Exam Cardiovascular Exam: +S1, +S2 - GI/Abdominal Exam GI & Abdominal Exam: Normal Bowel Sounds - Extremities Exam Extremities exam: Positive for: normal inspection - Neurological Exam Neurological exam: Oriented x3 Results - Vital Signs Recent Vital Signs: Last Vital Signs Temp 101.6 F H 10/26/16 16:39 Pulse 128 H 10/26/16 16:39 Resp 18 10/26/16 16:39 BP 124/62 10/26/16 16:39 Pulse Ox 96 10/26/16 16:39 - Labs Result Diagrams: 10/26/16 10:15 10/26/16 06:43 Labs: Laboratory Results - last 24 hr 10/25/16 10/26/16 10/26/16 21:00 06:43 09:34 WBC 8.5 D RBC 3.22 L Hgb 6.6 L Hct 21.4 L MCV 66.7 L D MCH 20.4 L MCHC 30.7 L RDW 20.2 H Plt Count 254 Retic Count PT INR APTT Sodium 144 Potassium 3.7 Chloride 106 Carbon Dioxide 26 Anion Gap 16 BUN 6 L Creatinine 0.6 L Est GFR ( Amer) > 60 Est GFR (Non-Af Amer) > 60 Random Glucose 101 Calcium 8.6 Ferritin Total Bilirubin 1.4 H Direct Bilirubin 0.5 H Vitamin B12 Urine Opiates Screen Negative Urine Methadone Screen Negative Ur Barbiturates Screen Negative Ur Phencyclidine Scrn Negative Ur Amphetamines Screen Negative U Benzodiazepines Scrn Negative U Oth Cocaine Metabols Negative U Cannabinoids Screen Negative Blood Type O POSITIVE Blood Type Confirm Antibody Screen Negative BBK History Checked No verified bt 10/26/16 10/26/16 10/26/16 10:15 12:00 15:47 WBC RBC Hgb 6.8 L Hct 23.1 L MCV MCH MCHC RDW Plt Count Retic Count 4.7 H PT 11.7 H INR 1.13 H APTT 34.9 H Sodium Potassium Chloride Carbon Dioxide Anion Gap BUN Creatinine Est GFR ( Amer) Est GFR (Non-Af Amer) Random Glucose Calcium Ferritin 466.0 Total Bilirubin Direct Bilirubin Vitamin B12 230 L Urine Opiates Screen Urine Methadone Screen Ur Barbiturates Screen Ur Phencyclidine Scrn Ur Amphetamines Screen U Benzodiazepines Scrn U Oth Cocaine Metabols U Cannabinoids Screen Blood Type Blood Type Confirm O POSITIVE Antibody Screen BBK History Checked Assessment & Plan (1) Anemia Assessment and Plan: Alpha thalassemia retic index consistent with hypoproliferative erythroid response recommend checking ferritin, b12, folate; may be deficient agree with transfusion support; to receive 2U PRBC check FOBT to rule out occult GI blood loss Status: Acute (2) Leukocytosis Assessment and Plan: improved with antibiotics Status: Acute (3) Tobacco abuse Assessment and Plan: discussed smoking cessation at length with the patient Thank you for this interesting consult. Status: Acute
[2016-10-26 22:36] LABS: FOLATE 11.9 ng/mL
[2016-10-27] MEDS: Albuterol-Ipratrop 3 mg / 0.5 (3 ml) UD INH SCH ×6 (08:00→19:17)
[2016-10-27 08:21] LABS: HEMATOCRIT 26.9 % (35.0-51.0); MEAN CELL VOLUME 70.5 fl (80.0-94.0); MEAN CORPUSCULAR HEMOGLOBIN 21.4 pg (27.0-31.0); MEAN CORPUSCULAR HGB CONC 30.3 g/dL (33.0-37.0); RED CELL DISTRIBUTION WIDTH 23.2 % (11.5-14.5); WHITE BLOOD COUNT 8.1 K/uL (4.8-10.8)
[2016-10-27] MEDS: cefTRIAXone 2 GM in Sodium Chloride 0.9% 100 ML IVPB SCH (08:27)
--- NOTE | 2016-10-27 08:43 | CP.PCM.PN ---
Subjective - Date & Time of Evaluation Date of Evaluation: 10/27/16 Time of Evaluation: 08:41 - Subjective Subjective: Patient reported felling better today , he had back pain overnight and morphine was given since then slept weel, he was transfused 2 units of PRBCs no complications. He reported fever yesterday afternoon 101.4 improved with tylenol. Denied nausea, vomits , diarrhea, ches pain palpitation urinary problems. Objective - Vital Signs/Intake and Output Vital Signs (last 24 hours): Temp Pulse Resp BP Pulse Ox 98.2 F 89 20 104/60 97 10/27/16 07:36 10/27/16 07:36 10/27/16 07:36 10/27/16 07:36 10/27/16 07:36 - Medications Medications: Current Medications Acetaminophen (Tylenol 325mg Tab) 650 mg PO Q6 PRN PRN Reason: Fever >100.4 F Last Admin: 10/26/16 15:41 Dose: 650 mg Acetaminophen (Tylenol 325mg Tab) 650 mg PO Q6 PRN PRN Reason: Pain, Mild (1-3) Last Admin: 10/25/16 16:02 Dose: 650 mg Albuterol Sulfate (Albuterol 0.083% Inhal Kirstie (2.5 Mg/3 Ml) Ud) 2.5 mg INH RQ6 PRN PRN Reason: Shortness of Breath Albuterol/Ipratropium (Duoneb 3 Mg/0.5 Mg (3 Ml) Ud) 3 ml INH RQID [facility] Last Admin: 10/27/16 08:00 Dose: 3 ml Folic Acid (Folic Acid) 1 mg PO DAILY [facility] Last Admin: 10/27/16 08:26 Dose: 1 mg Guaifenesin/Dextromethorphan (Robitussin Dm) 10 ml PO Q6 PRN PRN Reason: Cough Last Admin: 10/26/16 17:12 Dose: 10 ml Ceftriaxone Sodium 2 gm/ (Sodium Chloride) 100 mls @ 100 mls/hr IVPB DAILY [facility] Last Admin: 10/27/16 08:27 Dose: 100 mls/hr Azithromycin 500 mg/ Sodium (Chloride) 250 mls @ 250 mls/hr IVPB DAILY@1000 [facility] Last Admin: 10/26/16 09:20 Dose: 250 mls/hr Ketorolac Tromethamine (Toradol) 15 mg IVP Q6 PRN PRN Reason: Pain, moderate (4-7) Last Admin: 10/25/16 17:32 Dose: 15 mg Morphine Sulfate (Morphine) 2 mg IVP Q6 PRN PRN Reason: Pain, severe (8-10) Last Admin: 10/27/16 00:29 Dose: 2 mg Nicotine (Nicoderm Cq) 1 patch TD DAILY [facility] Last Admin: 10/27/16 08:29 Dose: 1 patch Ondansetron HCl (Zofran Inj) 4 mg IVP Q6 PRN PRN Reason: Nausea/Vomiting Last Admin: 10/26/16 20:12 Dose: 4 mg Pantoprazole Sodium (Protonix Inj) 40 mg IVP DAILY [facility] Last Admin: 10/27/16 08:26 Dose: 40 mg - Labs Labs: 10/27/16 07:45 10/26/16 06:43 PT 11.7 SECONDS (9.6-11.2) H 10/26/16 10:15 INR 1.13 (0.92-1.08) H 10/26/16 10:15 APTT 34.9 SECONDS (23.3-32.5) H 10/26/16 10:15 - Head Exam Additional comments: ATRAUMATIC, NORMOCEPHALIC - Eye Exam Eye Exam: EOMI Pupil Exam: PERRL - ENT Exam ENT Exam: Mucous Membranes Dry - Respiratory Exam Respiratory Exam: Clear to Ausculation Bilateral. absent: Accessory Muscle Use , Chest Wall Tenderness, Decreased Breath Sounds, Prolonged Expiratory Phase, Rales, Rhonchi, Wheezes, Respiratory Distress, Stridor - Cardiovascular Exam Cardiovascular Exam: REGULAR RHYTHM. absent: Tachycardia - GI/Abdominal Exam GI & Abdominal Exam: Soft, Normal Bowel Sounds. absent: Distended, Tenderness - Extremities Exam Extremities Exam: absent: Calf Tenderness, Tenderness - Neurological Exam Neurological Exam: Alert, Awake, Oriented x3 - Skin Skin Exam: Dry, Intact, Pallor, Warm Assessment and Plan - Assessment and Plan (Free Text) Assessment: 1) Community Adquired pneumonia - CXR shows well-inflated lungs w/o clear infiltrate, - Albuterol 0.083% INH RQ6 PRN - Robitussin DM 10 mL PO Q6H PRN - Ceftriaxone 2g IVP Daily - Azithromycin 500mg IVP Daily - Rothman cultures negative - WBC : WNL - Ice pack on back PRN - flexeril 10 mg PO HS for back pain -f/u CBC tomorrow 2) Anemia, Chronic secondary to alpha Thalassemia - HbH - s/p Transfusion 2 units of PRBCs - Repeat H/H 8.08/09 - folic acid 1 mg po daily - Vit B 12 1000 mcg IM daily - Ret count 4.7 ferritn elevated ,B12 level low - Dr Marte on board input appreciate - f/u h/h tomorrow - Toraldol 15 m IV q 6hrs PRN - Tylenol for fever PRN 3) Hepatits C positive - f/u viral load 4) Acute cholecystitis has been rule out - Few day h/o nausea/vomiting, skin slightly jaundiced, noted h/o alpha thalassemia - CT A/P: Gallstones. Hepatomegaly. Infiltration and gas in the left buttock and subcutaneous fat, correlate for recent trauma. - U/S Abd: Gallstones. No sonographic evidence of acute cholecystitis. Hepatomegaly, measuring 20cm in length. Otherwise within normal limits in appearance. Normal flow seen in the main portal vein on color and Doppler imaging. 5) Trauma of Buttocks - CT A/P: Infiltration and gas in the left buttock and subcutaneous fat, correlate for recent trauma. - patient reports self injection at left buttock with "B vitamins", refuses to disclose who prescribes to him 6) Smoking Cessation - Pt agreed to use Nicotine Patch in patient in hopes of breaking his long-time smoking habit 7) DVT Prophylaxis - SCDs
[2016-10-27] MEDS: Azithromycin 500 MG in Sodium Chloride 0.9% 250 ML IVPB SCH (09:18)
[2016-10-27 21:00] VITALS: RESP 20
[2016-10-28] MEDS: Albuterol-Ipratrop 3 mg / 0.5 (3 ml) UD INH SCH ×2 (07:12→11:18)
[2016-10-28 07:33] VITALS: BP 102/68; PULSE 88; TEMP 98.2; O2SAT 96
[2016-10-28 08:07] LABS: HEMATOCRIT 27.9 % (35.0-51.0); MEAN CELL VOLUME 70.2 fl (80.0-94.0); MEAN CORPUSCULAR HEMOGLOBIN 21.6 pg (27.0-31.0); MEAN CORPUSCULAR HGB CONC 30.8 g/dL (33.0-37.0); RED CELL DISTRIBUTION WIDTH 23.8 % (11.5-14.5); WHITE BLOOD COUNT 7.7 K/uL (4.8-10.8)
[2016-10-28] MEDS: cefTRIAXone 2 GM in Sodium Chloride 0.9% 100 ML IVPB SCH (08:29)
--- NOTE | 2016-10-28 10:13 | CP.PCM.DIS ---
Provider - Provider Date of Admission: 10/25/16 12:57 Attending physician: Elin Cueto MD Time Spent in preparation of Discharge (in minutes): 30 Diagnosis - Discharge Diagnosis (1) Anemia Status: Acute (2) Alpha 0-thalassemia Status: Acute Hospital Course - Lab Results Lab Results: Most Recent Lab Values WBC 7.7 K/uL (4.8-10.8) 10/28/16 06:30 RBC 3.97 Mil/uL (4.40-5.90) L 10/28/16 06:30 Hgb 8.6 g/dL (12.0-18.0) L 10/28/16 06:30 Hct 27.9 % (35.0-51.0) L 10/28/16 06:30 MCV 70.2 fl (80.0-94.0) L 10/28/16 06:30 MCH 21.6 pg (27.0-31.0) L 10/28/16 06:30 MCHC 30.8 g/dL (33.0-37.0) L 10/28/16 06:30 RDW 23.8 % (11.5-14.5) H 10/28/16 06:30 Plt Count 285 K/uL (130-400) 10/28/16 06:30 MPV 10.1 fl (7.2-11.7) 10/24/16 16:15 Neut % (Auto) 89.5 % (50.0-75.0) H 10/24/16 16:15 Lymph % (Auto) 6.0 % (20.0-40.0) L 10/24/16 16:15 [place] % (Auto) 4.5 % (0.0-10.0) 10/24/16 16:15 Eos % (Auto) 0.0 % (0.0-4.0) 10/24/16 16:15 Baso % (Auto) 0.0 % (0.0-2.0) 10/24/16 16:15 Neut # 15.4 K/uL (1.8-7.0) H 10/24/16 16:15 Lymph # 1.0 K/uL (1.0-4.3) 10/24/16 16:15 [place] # 0.8 K/uL (0.0-0.8) 10/24/16 16:15 Eos # 0.0 K/uL (0.0-0.7) 10/24/16 16:15 Baso # 0.0 K/uL (0.0-0.2) 10/24/16 16:15 Neutrophils % (Manual) 81 % (42-75) H 10/24/16 16:15 Band Neutrophils % 4 % (0-2) H 10/24/16 16:15 Lymphocytes % (Manual) 8 % (20-50) L 10/24/16 16:15 Monocytes % (Manual) 7 % (0-10) 10/24/16 16:15 Platelet Estimate Normal (NORMAL) 10/24/16 16:15 Hypochromasia (manual) Moderate 10/24/16 16:15 Poikilocytosis (manual Slight 10/24/16 16:15 Anisocytosis (manual) Moderate 10/24/16 16:15 Microcytosis (manual) Moderate 10/24/16 16:15 Target Cells Moderate 10/24/16 16:15 Tear Drop Cells Slight 10/24/16 16:15 Ovalocytes Slight 10/24/16 16:15 Retic Count 4.7 % (0.5-1.5) H 10/26/16 10:15 PT 11.7 SECONDS (9.6-11.2) H 10/26/16 10:15 INR 1.13 (0.92-1.08) H 10/26/16 10:15 APTT 34.9 SECONDS (23.3-32.5) H 10/26/16 10:15 pO2 25 mm/Hg (30-55) L 10/24/16 10:01 VBG pH 7.33 (7.32-7.43) 10/24/16 10:01 VBG pCO2 49 mmHg (40-60) 10/24/16 10:01 VBG HCO3 22.8 mmol/L 10/24/16 10:01 VBG Total CO2 27.3 mmol/L (22-28) 10/24/16 10:01 VBG O2 Sat (Calc) 59.3 % (40-65) 10/24/16 10:01 VBG Base Excess -0.7 mmol/L (0.0-2.0) L 10/24/16 10:01 VBG Potassium 4.2 mmol/L (3.6-5.2) 10/24/16 10:01 Sodium 138.0 mmol/L (132-148) 10/24/16 10:01 Chloride 109.0 mmol/L (98-107) H 10/24/16 10:01 Glucose 115 mg/dL (75-110) H 10/24/16 10:01 Lactate 1.7 mmol/L (0.7-2.1) 10/24/16 10:01 FiO2 21.0 % 10/24/16 10:01 Sodium 144 mmol/l (132-148) 10/26/16 06:43 Potassium 3.7 MMOL/L (3.6-5.0) 10/26/16 06:43 Chloride 106 mmol/L (98-107) 10/26/16 06:43 Carbon Dioxide 26 mmol/L (22-30) 10/26/16 06:43 Anion Gap 16 (10-20) 10/26/16 06:43 BUN 6 mg/dl (9-20) L 10/26/16 06:43 Creatinine 0.6 mg/dL (0.8-1.5) L 10/26/16 06:43 Est GFR ( Amer) > 60 10/26/16 06:43 Est GFR (Non-Af Amer) > 60 10/26/16 06:43 Random Glucose 101 mg/dL (75-110) 10/26/16 06:43 Calcium 8.6 mg/dL (8.4-10.2) 10/26/16 06:43 Ferritin 466.0 ng/mL 10/26/16 15:47 Total Bilirubin 1.4 mg/dl (0.2-1.3) H 10/26/16 09:34 Direct Bilirubin 0.5 mg/ml (0.0-0.4) H 10/26/16 09:34 AST 34 U/L (17-59) 10/24/16 16:15 ALT 11 U/L (21-72) L 10/24/16 16:15 Alkaline Phosphatase 79 U/L (38-126) 10/24/16 16:15 Total Protein 8.4 G/DL (6.3-8.2) H 10/24/16 16:15 Albumin 4.3 g/dL (3.5-5.0) 10/24/16 16:15 Globulin 4.2 gm/dL (2.2-3.9) H 10/24/16 16:15 Albumin/Globulin Ratio 1.0 (1.0-2.1) 10/24/16 16:15 Lipase 42 U/L (23-300) 10/24/16 16:15 Vitamin B12 230 pg/mL (239-931) L 10/26/16 15:47 Folate 11.9 ng/mL 10/26/16 15:47 Procalcitonin 0.19 NG/ML (0.19-0.49) 10/25/16 06:50 Venous Blood Potassium 4.2 mmol/L (3.6-5.2) 10/24/16 10:01 Urine Color Yellow (YELLOW) 10/24/16 17:35 Urine Clarity Clear (Clear) 10/24/16 17:35 Urine pH 5.0 (5.0-8.0) 10/24/16 17:35 Ur Specific [place] 1.025 (1.003-1.030) 10/24/16 17:35 Urine Protein 30 mg/dL (NEGATIVE) 10/24/16 17:35 Urine Glucose (UA) Neg mg/dL (Normal) 10/24/16 17:35 Urine Ketones Negative mg/dL (NEGATIVE) 10/24/16 17:35 Urine Blood Small (NEGATIVE) 10/24/16 17:35 Urine Nitrate Negative (NEGATIVE) 10/24/16 17:35 Urine Bilirubin Negative (NEGATIVE) 10/24/16 17:35 Urine Urobilinogen 0.2-1.0 mg/dL (0.2-1.0) 10/24/16 17:35 Ur Leukocyte Esterase Neg Gilbert/uL (Negative) 10/24/16 17:35 Urine RBC (Auto) < 1 /hpf (0-3) 10/24/16 17:35 Urine Microscopic WBC 1 /hpf (0-5) 10/24/16 17:35 Urine Opiates Screen Negative (NEGATIVE) 10/25/16 21:00 Urine Methadone Screen Negative (NEGATIVE) 10/25/16 21:00 Ur Barbiturates Screen Negative (NEGATIVE) 10/25/16 21:00 Ur Phencyclidine Scrn Negative (NEGATIVE) 10/25/16 21:00 Ur Amphetamines Screen Negative (NEGATIVE) 10/25/16 21:00 U Benzodiazepines Scrn Negative (NEGATIVE) 10/25/16 21:00 U Oth Cocaine Metabols Negative (NEGATIVE) 10/25/16 21:00 U Cannabinoids Screen Negative (NEGATIVE) 10/25/16 21:00 Hepatitis A IgM Ab Negative (NEGATIVE) 10/24/16 22:45 Hep Bs Antigen Negative (NEGATIVE) 10/24/16 22:45 Hep B Core IgM Ab Negative (NEGATIVE) 10/24/16 22:45 Hepatitis C Antibody Reactive (NEGATIVE) H 10/24/16 22:45 HIV 1&2 Antibody Screen Negative (NEGATIVE) 10/25/16 07:45 Blood Type O POSITIVE 10/26/16 09:34 Blood Type Confirm O POSITIVE 10/26/16 12:00 Antibody Screen Negative 10/26/16 09:34 Crossmatch See Detail 10/26/16 09:34 BBK History Checked No verified bt 10/26/16 09:34 - Hospital Course Hospital Course: The patient is a 46 y/o man w/ PMHx of chronic anemia w/ alpha thalassemia is admitted for nausea, vomiting, productive cough, and cough-associated mid back pain for previous 2-3 days. The patient was started on treatment for pneumonia with IV ceftriaxone and azithromycin due to respiratory complaints and elevated WBC. The patient had CXR which showed no active disease; however, the patient started to have febrile episodes. The antibiotics were continued until discharge. The patient also complains of a chronic back pain that improved with flexeril. The patient also had a large drop on Hg of 6.6 on 10/26 which was improved to 8.1 s/p 2 units PRBC. The patient was seen by Heme/Onc for acute anemia and alpha-thalassemia. The patient reports improvement. The patient has an appointment scheduled with the [facility] on . The patient has been seen, examined, and deemed medically fit with no contraindication for discharge home. The patient will be discharged with flexeril 10 mg PO HS, naprosyn 375 mg PO BID, ventolin HFA 2 puff Q6h prn, duonebs 3 mL IH QID, and nicotine patch topical daily. Discharge Exam - Head Exam Head Exam: ATRAUMATIC - Eye Exam Eye Exam: EOMI Pupil Exam: PERRL - ENT Exam ENT Exam: Mucous Membranes Moist - Respiratory Exam Respiratory Exam: Clear to PA & Lateral. absent: Accessory Muscle Use, Chest Wall Tenderness, Decreased Breath Sounds, Prolonged Expiratory Phase, Rales, Rhonchi, Wheezes, Respiratory Distress, Stridor - Cardiovascular Exam Cardiovascular Exam: REGULAR RHYTHM. absent: Tachycardia - GI/Abdominal Exam GI & Abdominal Exam: Normal Bowel Sounds, Soft. absent: Distended, Tenderness - Neurological Exam Neurological exam: Alert, Normal Gait, Oriented x3 - Skin Skin Exam: Dry, Intact, Pallor, Warm Discharge Plan - Discharge Medications Prescriptions: Albuterol HFA [Ventolin HFA 90 mcg/actuation (8 g)] 2 puff IH [id number] #1 puff Cyclobenzaprine [Flexeril] 10 mg PO DAILY #30 tab Naproxen [Naprosyn Tab] 375 mg PO BID #60 tab Nicotine 21 mg/24 hr [Nicoderm Cq] 21 mg TD DAILY #30 patch - Follow Up Plan Condition: IMPROVED Disposition: HOME/ ROUTINE Instructions: Viral Pneumonia (DC), Viral Pneumonia (GEN), Leukocytosis (DC), Leukocytosis (GEN) Additional Instructions: FOLLOW UP [facility] AT [phone] ON NOVEMBER 06. Referrals: Elin Cueto MD [Staff Provider] - Vikram Lee MD [Resident] -
== END 2016-10-28 14:36 | disposition home or self-care (01) | DRG 89 ==
LOC: H.ER 15:17 → H.ERHOLD 19:31 → H.TEL 22:28 → OBSVTOIN 10-25 12:57 → H.MEDSURG1 10-25 16:25
PROVIDERS: ADMIT Family Medicine Geriatric Medicine; ATTEND Family Medicine Geriatric Medicine
PROC: 3E0F73Z Introduction of Anti-inflammatory into Respiratory Tract, Via Natural or Artificial Opening (ICD-10-PCS; principal; 2016-10-25)
PROC: 3E0234Z Introduction of Serum, Toxoid and Vaccine into Muscle, Percutaneous Approach (ICD-10-PCS; 2016-10-25)
PROC: 30233N1 Transfusion of Nonautologous Red Blood Cells into Peripheral Vein, Percutaneous Approach (ICD-10-PCS; 2016-10-26)
DX: J10.08 Influenza due to other identified influenza virus with other specified pneumonia (principal); B18.2 Chronic viral hepatitis C; D56.0 Alpha thalassemia; J12.89 Other viral pneumonia; D63.8 Anemia in other chronic diseases classified elsewhere; G89.29 Other chronic pain; K80.80 Other cholelithiasis without obstruction; F17.210 Nicotine dependence, cigarettes, uncomplicated; Z23 Encounter for immunization

== ENCOUNTER 2017-10-18 17:36 | Emergency (ER) | payer MEDICAID ==
[2017-10-18 18:00] VITALS: O2SAT 99
[2017-10-18] MEDS ORDERED: Fluorescein 1 mg Ophthalmic Strip ONE (21:00)
--- NOTE | 2017-10-18 21:07 | ED PDOC ---
HPI: Eye Injury/Pain Time Seen by Provider: 10/18/17 20:14 Chief Complaint (Nursing): Eye Problem History Per: Patient Additional Complaint(s): Pt. states yesterday he was informed by his mother that his L eye was red. States he did not notice this until his mother informed him. Reports that today upon awakening redness worsened and he developed mild pain behind the L eye. Pt. is concerned he may have a FB there. Denies trauma, visual changes, headache , light sensitivity. Past Medical History Reviewed: Historical Data, Nursing Documentation, Vital Signs Vital Signs: Last Vital Signs Temp 98.3 F 10/18/17 17:56 Pulse 97 H 10/18/17 17:56 Resp 16 10/18/17 17:56 BP 119/59 L 10/18/17 17:56 Pulse Ox 99 10/18/17 17:56 - Medical History PMH: Anemia - Surgical History Surgical History: Appendectomy - Family History Family History: States: No Known Family Hx - Home Medications Home Medications: Ambulatory Orders Medication Instructions Recorded Albuterol HFA [Ventolin HFA 90 2 puff IH [id number] #1 puff 10/28/16 mcg/actuation (8 g)] Albuterol/Ipratropium [Duoneb 3 3 ml IH QID PRN #30 neb 10/28/16 MG/3 Ml-0.5 MG/3 Ml 3 Ml] Cyclobenzaprine [Flexeril] 10 mg PO DAILY #30 tab 10/28/16 Naproxen [Naprosyn Tab] 375 mg PO BID #60 tab 10/28/16 Nicotine 21 mg/24 hr [Nicoderm Cq] 21 mg TD DAILY #30 patch 10/28/16 Erythromycin 0.5% [Erythromycin 1 appl LEFTEYE QID #1 tube 10/18/17 0.5% Oint] - Allergies Allergies/Adverse Reactions: Allergies Allergy/AdvReac Type Severity Reaction Status Date / Time avocado Allergy ITCHING Verified 10/18/17 17:56 peach Allergy ITCHING Verified 10/18/17 17:56 Review of Systems ROS Statement: Except As Marked, All Systems Reviewed And Found Negative Eyes: Positive for: Pain, Conjunctivae Inflammation, Redness. Negative for: Vision Change, Eyelid Inflammation Physical Exam - Physical Exam Appears: Positive for: Well, Non-toxic, No Acute Distress Head Exam: Positive for: ATRAUMATIC, NORMAL INSPECTION, NORMOCEPHALIC Skin: Positive for: Normal Color, Warm. Negative for: Rash Eye Exam: Positive for: EOMI (without pain), PERRL, Conjunctival injection (L eye; R eye is not injected), Other (no fluoroscein uptake). Negative for: Nystagmus, Periorbital swelling, Periorbital tenderness, Scleral icterus - ECG O2 Sat by Pulse Oximetry: 99 Disposition - Clinical Impression Clinical Impression: Conjunctivitis - Patient ED Disposition Is Patient to be Admitted: No - Disposition Referrals: Kenneth Bertrand MD [Staff Provider] - [employer] Juliana Sebastian [Outside] Disposition: Routine/Home Disposition Time: 21:10 Condition: STABLE Additional Instructions: Follow up with Dr. Bertrand, eye doctor, for further evaluation. Return to ED immediately for any concerns or questions. Prescriptions: Erythromycin 0.5% [Erythromycin 0.5% Oint] 1 appl LEFTEYE QID #1 tube Instructions: Conjunctivitis ([place]) (DC) Forms: [employer] ([place]) Print Language: JORDANIAN
[2017-10-18 23:57] VITALS: BP 122/70; PULSE 89; RESP 18; TEMP 98
== END 2017-10-18 21:30 | disposition home or self-care (01) ==
LOC: H.ER 17:36
DX: H10.9 Unspecified conjunctivitis (principal)